=== PATIENT | female | born 1985 | race Two or more races ===

== ENCOUNTER 2017-03-12 06:39 | Emergency (ER) | payer MEDICAID, OTHER ==
[~2017-03-12] VITALS: Ht 162.6 cm; Wt 74.2 kg
[2017-03-12] MEDS ORDERED: HYDR-3965 PO (07:00)
[2017-03-12 07:12] VITALS: BP 110/73
== END 2017-03-12 07:14 | disposition home or self-care (01) ==
LOC: ER 06:39
DX: K08.89 Other specified disorders of teeth and supporting structures (principal)
CPT/HCPCS: 99283

== ENCOUNTER 2017-04-23 11:18 | Emergency (ER) | payer MEDICAID, OTHER ==
[~2017-04-23] VITALS: Ht 162.6 cm; Wt 72.7 kg
[2017-04-23] MEDS ORDERED: ONDA4TAB9 PO (12:30)
[2017-04-23] MEDS ORDERED: ondansetron 4mg rapidly disintigrating tab PO ONE (12:30)
[2017-04-23] MEDS ORDERED: HYDR-565 PO (12:30)
[2017-04-23] MEDS ORDERED: HYDROcodone/acetaminophen 10/325mg tab PO ONE (12:30)
[2017-04-23 13:10] VITALS: BP 107/63
== END 2017-04-23 12:50 | disposition home or self-care (01) ==
LOC: ER 11:18
DX: S02.5XXA Fracture of tooth (traumatic), initial encounter for closed fracture (principal); K00.6 Disturbances in tooth eruption; Z98.890 Other specified postprocedural states; X58.XXXA Exposure to other specified factors, initial encounter; Y93.89 Activity, other specified; Y92.89 Other specified places as the place of occurrence of the external cause; Y99.8 Other external cause status
CPT/HCPCS: 99283

== ENCOUNTER 2017-06-08 10:49 | Emergency (ER) | payer MEDICAID, OTHER ==
[~2017-06-08] VITALS: Ht 162.6 cm; Wt 77.0 kg
[2017-06-08 11:06] VITALS: BP 98/55
[2017-06-08] MEDS ORDERED: NAPR-56 PO (11:18)
[2017-06-08] MEDS ORDERED: PENI250T2 PO (11:18)
== END 2017-06-08 11:26 | disposition home or self-care (01) ==
LOC: ER 10:49
DX: K08.89 Other specified disorders of teeth and supporting structures (principal)
CPT/HCPCS: 99283

== ENCOUNTER 2017-11-15 08:49 | Emergency (ER) | payer MEDICAID, OTHER ==
[~2017-11-15] VITALS: Ht 162.6 cm; Wt 79.0 kg
[2017-11-15 09:01] VITALS: BP 135/87
[2017-11-15] MEDS ORDERED: HYDR-3965 PO (09:44)
== END 2017-11-15 09:57 | disposition home or self-care (01) ==
LOC: ER 08:50
DX: O90.89 Other complications of the puerperium, not elsewhere classified (principal); G89.18 Other acute postprocedural pain; Z88.6 Allergy status to analgesic agent
CPT/HCPCS: 99283

== ENCOUNTER → 2018-03-02 | Emergency (ER) | payer MEDICAID, OTHER ==
[~2018-03-02] VITALS: Ht 162.6 cm; Wt 77.3 kg
[~2018-03-02] MED LIST: HYDR-4353 PO; PENI500T2 PO
[2018-03-02 09:07] VITALS: BP 121/55
== END | disposition home or self-care (01) ==
LOC: ER 09:01
DX: S02.5XXA Fracture of tooth (traumatic), initial encounter for closed fracture (principal); Z90.49 Acquired absence of other specified parts of digestive tract; Z98.890 Other specified postprocedural states; Z87.891 Personal history of nicotine dependence; Z88.6 Allergy status to analgesic agent; Z79.899 Other long term (current) drug therapy; X58.XXXA Exposure to other specified factors, initial encounter; Y93.89 Activity, other specified; Y92.89 Other specified places as the place of occurrence of the external cause; Y99.9 Unspecified external cause status
CPT/HCPCS: 99283

== ENCOUNTER 2018-05-22 12:28 | Emergency (ER) | payer OTHER ==
[~2018-05-22] VITALS: Ht 162.6 cm; Wt 81.8 kg
[~2018-05-22 12:28] MED LIST changes: +ACET1TAB14 PO; +AMOX-100 PO; -HYDR-4353 PO; -PENI500T2 PO
[2018-05-22 12:42] VITALS: BP 127/74
[2018-05-22] MEDS ORDERED: ACET-3067 PO (12:48)
[2018-05-22] MEDS ORDERED: acetaminophen w/codeine (30MG) #3 tablet PO ONE (12:50)
--- NOTE | 2018-05-22 13:01 | NUR ---
pt dc from triage. pt given pain meds
== END 2018-05-22 13:58 | disposition home or self-care (01) ==
LOC: ER 12:28
DX: K02.9 Dental caries, unspecified (principal); K08.89 Other specified disorders of teeth and supporting structures; Z90.49 Acquired absence of other specified parts of digestive tract; Z88.6 Allergy status to analgesic agent
CPT/HCPCS: 99282

== ENCOUNTER 2018-06-05 10:14 | Emergency (ER) | payer OTHER ==
[~2018-06-05] VITALS: Ht 162.6 cm; Wt 82.0 kg
[2018-06-05 10:15] VITALS: BP 117/69
[2018-06-05] MEDS ORDERED: CHLO473M3 PO (10:37)
--- NOTE | 2018-06-05 11:04 | NUR ---
PT LEFT BEFORE DC INSTRUCTION WERE REVIEWED. I CALLED PT AT [phone] [employer] SAID THAT THEY CAN NOT TAKE ANY ELÍAS AT THIS TIME. PT HAS A RX AND UNABLE TO GE IT TO HER.
== END 2018-06-05 11:06 | disposition home or self-care (01) ==
LOC: ER 10:15
DX: K08.89 Other specified disorders of teeth and supporting structures (principal); Z90.49 Acquired absence of other specified parts of digestive tract; Z88.6 Allergy status to analgesic agent; Z79.899 Other long term (current) drug therapy
CPT/HCPCS: 99282